=== PATIENT | male | born 1980 | race Two or more races ===

== ENCOUNTER 2025-03-15 10:31 | Emergency (ER) | payer OTHER ==
[~2025-03-15] VITALS: Ht 177.8 cm; Wt 77.1 kg
[2025-03-15 10:49] VITALS: BP 125/73; TEMP 98.2
[2025-03-15] MEDS ORDERED: OFLO5DRO5 EACH EAR (11:11)
[2025-03-15] MEDS ORDERED: IBUP-1957 PO (11:11)
[2025-03-15 11:19] VITALS: O2SAT 98
== END 2025-03-15 11:20 | disposition home or self-care (01) ==
LOC: ER 10:31
DX: H60.91 Unspecified otitis externa, right ear (principal); F19.10 Other psychoactive substance abuse, uncomplicated